=== PATIENT | male | born 1935 | race African-American/Black ===

== ENCOUNTER 2019-09-26 23:23 | Emergency (ER) | payer BC ==
[~2019-09-26] VITALS: Ht 188 cm; Wt 118.0 kg
[2019-09-27] MEDS ORDERED: SODIUM CHLORIDE 0.9% 1,000 ML IV ONE (00:14)
[2019-09-27] MEDS ORDERED: ONDANSETRON HCL 4MG/2ML INJ IV STA (00:14)
[2019-09-27] MEDS ORDERED: FENTANYL CITRATE/PF 50MCG/ML 2ML VIAL IV ONE ×2 (00:15→05:45)
[2019-09-27 00:26] LABS: BASOPHILS % 0.3 % (0.0-2.0); HEMATOCRIT. 24.7 % (42.0-52.0); HEMOGLOBIN. 7.6 g/dL (14.0-18.0); LYMPHOCYTES % 14.3 % (20.0-50.0); MEAN CORPUSCULAR HEMOGLOBIN 22.2 pg (28.0-32.0); MEAN CORPUSCULAR VOLUME 71.6 fL (80.0-94.0); MEAN PLATELET VOLUME 7.9 fl (7.4-10.4); MONOCYTES % 6.8 % (2.0-8.0); NEUTROPHILS % 77.6 % (40.0-76.0); PLATELET 242 x1000/uL (130-400); RED BLOOD CELL COUNT 3.44 mill/uL (4.7-6.1)
[2019-09-27 00:32] LABS: PROTHROMBIN TIME 10.8 sec (9.6-11.0)
[2019-09-27 00:44] LABS: CHLORIDE 107 mEq/L (98-107)
[2019-09-27 08:10] VITALS: BP 167/84
== END 2019-09-27 08:36 | disposition short-term general hospital (02) ==
LOC: ER 23:23
DX: S00.83XA Contusion of other part of head, initial encounter (principal); S14.129A Central cord syndrome at unspecified level of cervical spinal cord, initial encounter; I10 Essential (primary) hypertension; E11.9 Type 2 diabetes mellitus without complications; Z87.39 Personal history of other diseases of the musculoskeletal system and connective tissue; W01.0XXA Fall on same level from slipping, tripping and stumbling without subsequent striking against object, initial encounter; Y93.89 Activity, other specified; Y92.89 Other specified places as the place of occurrence of the external cause; Y99.8 Other external cause status
CPT/HCPCS: 36415; 70450; 71045; 72125; 80053; 85025; 85610; 93005; 96374; 96375; 96376; 99291; J2405; J3010; J7030